=== PATIENT | female | born 1965 | race Caucasian/White ===

== ENCOUNTER 2017-06-22 07:23 | Day surgery (SDC) | payer MEDICAID ==
[~2017-06-22] VITALS: Ht 152.4 cm; Wt 59.1 kg
[~2017-06-22 07:23] MED LIST: ANAS1TAB49 PO; BUSP15 PO; GABA-531 PO; MULT-1203 PO; PARO20TA24 PO; SIMV-259 PO; SODIUM CHLORIDE 0.9% 1,000 ML IV ONE; VITAD1000 PO
[2017-06-22] MEDS ORDERED: PROPOFOL 1% 20 ML VIAL IVP ONE (07:24)
[2017-06-22] MEDS ORDERED: SODIUM CHLORIDE 0.9% 1,000 ML IV ONE (07:30)
[2017-06-22] MEDS ORDERED: MIDAZOLAM HCL 5 MG/ML VIAL ONE (08:28)
[2017-06-22] MEDS ORDERED: FentaNYL CITRATE-PF 100 MCG/2 ML VIAL ONE (08:28)
== END 2017-06-22 10:35 | disposition home or self-care (01) ==
LOC: SURGERY 07:23
PROVIDERS: ATTEND Internal Medicine Gastroenterology
DX: K63.5 Polyp of colon (principal); K64.1 Second degree hemorrhoids; K64.4 Residual hemorrhoidal skin tags; F41.9 Anxiety disorder, unspecified; F32.9 Major depressive disorder, single episode, unspecified; E78.5 Hyperlipidemia, unspecified; Z85.3 Personal history of malignant neoplasm of breast; Z90.10 Acquired absence of unspecified breast and nipple; Z80.0 Family history of malignant neoplasm of digestive organs; G89.29 Other chronic pain
CPT/HCPCS: 45385; 88305; C1769; J2704; J7030; J2250; J3010

== ENCOUNTER 2019-09-25 11:32 | Day surgery (SDC) | payer MEDICAID ==
[~2019-09-25] VITALS: Ht 151.1 cm; Wt 49.1 kg
[~2019-09-25 11:32] MED LIST changes: -ANAS1TAB49 PO; +ANAS1TAB50 PO; +CHOL100018 PO; -SODIUM CHLORIDE 0.9% 1,000 ML IV ONE; +SODIUM CHLORIDE 0.9% 1,000 ML ONE; -VITAD1000 PO
[2019-09-25] MEDS ORDERED: PROPOFOL 1% 20 ML VIAL IVP ONE (11:33)
[2019-09-25] MEDS ORDERED: FentaNYL CITRATE-PF 100 MCG/2 ML VIAL IVP ONE (11:33)
[2019-09-25] MEDS ORDERED: SODIUM CHLORIDE 0.9% 1,000 ML IV ONE (12:00)
== END 2019-09-25 14:30 | disposition home or self-care (01) ==
LOC: SURGERY 11:32
PROVIDERS: ATTEND Student in an Organized Health Care Education/Training Program
DX: R11.2 Nausea with vomiting, unspecified (principal); R10.13 Epigastric pain; K29.50 Unspecified chronic gastritis without bleeding; K21.0 Gastro-esophageal reflux disease with esophagitis; K22.8 Other specified diseases of esophagus; K44.9 Diaphragmatic hernia without obstruction or gangrene; Z85.3 Personal history of malignant neoplasm of breast; Z80.0 Family history of malignant neoplasm of digestive organs
CPT/HCPCS: 43239; 88305; 88312; 88313; C1769; J2704; J7030; J3010